=== PATIENT | male | born 1980 | race Caucasian/White ===

== ENCOUNTER 2018-02-09 17:44 | Emergency (ER) | payer OTHER ==
[~2018-02-09] VITALS: Ht 182.9 cm; Wt 98.0 kg
[2018-02-09] MEDS ORDERED: BACDS PO (20:27)
[2018-02-09] MEDS ORDERED: MUPI22OI30 TOP (20:27)
[2018-02-09 20:36] VITALS: BP 127/81
== END 2018-02-09 20:40 | disposition home or self-care (01) ==
LOC: ER 17:44
DX: L03.211 Cellulitis of face (principal)
CPT/HCPCS: 99283

== ENCOUNTER 2020-03-15 10:42 | Emergency (ER) | payer SELFPAY ==
[~2020-03-15] VITALS: Ht 182.9 cm; Wt 90.9 kg
--- NOTE | 2020-03-15 11:00 | NUR ---
PT IS DIAPHORTIC IN PAIN 10/10,PT HAS MOD BLEEDING AT THE DRESSING SITE,PT PLACED COMFORTABLY IN BED WITH PILLOW SUPPORT.
[2020-03-15] MEDS ORDERED: morphine 4 MG/ML inj SYRINge IV ONE (11:05)
[2020-03-15] MEDS ORDERED: cefazolin/dext.iso 2gm/100ml 100 ML IV ONE (11:05)
[2020-03-15] MEDS ORDERED: ondansetron/PF 4mg/2ml inj IV ONE (11:05)
[2020-03-15] MEDS ORDERED: cefazolin/dext.iso 2gm/50ml 100 ML IV ONE (11:08)
[2020-03-15 11:16] LABS: BASOPHILS # (AUTO) 0.1 X10'3 (0-0.2); EOSINOPHILS # (AUTO) 0.3 X10'3 (0-0.9); EOSINOPHILS % (AUTO) 3.9 % (0-6); HEMATOCRIT 41.1 % (42.0-52.0); HEMOGLOBIN 13.5 g/dl (14.0-17.9); LYMPHOCYTES # (AUTO) 3.7 X10'3 (1.1-4.8); LYMPHOCYTES % (AUTO) 42.4 % (21-51); MEAN CORPUSCULAR HEMOGLOBIN 28.2 PG (27.0-31.0); MEAN CORPUSCULAR HGB CONC 32.9 g/dL (33.0-36.5); MEAN CORPUSCULAR VOLUME 85.8 FL (78-98); MONOCYTES # (AUTO) 0.8 X10'3 (0-0.9); MONOCYTES % (AUTO) 9.4 % (2-12); NEUTROPHILS # (AUTO) 3.8 X10'3 (1.8-7.7); NEUTROPHILS % (AUTO) 43.3 % (42-75); PLATELET COUNT 249 X10'3 (140-440); RED BLOOD COUNT 4.79 X10'6 (4.70-6.10); RED CELL DISTRIBUTION WIDTH 14.2 % (11.5-14.5); WHITE BLOOD COUNT 8.7 X10'3 (4.5-11.0)
[2020-03-15] MEDS ORDERED: HYDROmorphone 1 mg/ml syringe IV ONE (11:30)
[2020-03-15] MEDS ORDERED: normal saline 1000ML IV soln IVB ONE (11:30)
[2020-03-15 11:32] LABS: ALANINE AMINOTRANSFERASE 53 U/L (12-78); ALBUMIN 3.6 G/DL (3.4-5.0); ALBUMIN/GLOBULIN RATIO 1.1 (1.1-1.5); ALKALINE PHOSPHATASE 76 IU/L (46-116); ANION GAP 13 (8-16); ASPARTATE AMINO TRANSFERASE 24 U/L (10-37); BILIRUBIN,TOTAL 0.4 MG/DL (0.1-1.0); BLOOD UREA NITROGEN 9 MG/DL (7-18); CALCIUM 8.2 MG/DL (8.5-10.1); CHLORIDE 107 MMOL/L (99-107); CREATININE 1.28 MG/DL (0.60-1.10); GLUCOSE 146 MG/DL (70-104); POTASSIUM 3.6 MMOL/L (3.5-5.1); SODIUM 144 MMOL/L (135-145); TOTAL CARBON DIOXIDE 23.7 MMOL/L (24-32); TOTAL PROTEIN 6.9 G/DL (6.4-8.2); eGFR 63 ML/MIN
--- NOTE | 2020-03-15 11:39 | NUR ---
PER MANAN SAHA GIVE 1 MG DILAUDID NOW AND GIVE 1 MG LATER PT RECEVIED 4 MG MORPHINE WILL FOLLOW THE ORDERS.
--- NOTE | 2020-03-15 11:44 | NUR ---
PT GIVEN 1 MG OF DILAUDID PER MANAN SAHA ORDERS PT RECEVIED MORPHINE 4 MG.PT IS NOT DIAPHORTIC ,MORE COMFORTABLE FELT ASLEEP,RR UNLABORED ,NO DISTRESS NOTED ,PT VITALS STABLE WILL CONTY TO MONITOR.HR 80,BP 136/91,SPO2 94 ON RA.
--- NOTE | 2020-03-15 13:11 | NUR ---
GIVING 1MG OF DILAUDID RGT NOW PER PT REQUEST AND PROVIDER ORDERS.{YIFAN AT BEDSIDE}
[2020-03-15 15:06] VITALS: BP 138/94
== END 2020-03-15 14:00 | disposition short-term general hospital (02) ==
LOC: ER 10:43
DX: S61.412A Laceration without foreign body of left hand, initial encounter (principal); M79.642 Pain in left hand; R11.0 Nausea; R51 Headache; R06.02 Shortness of breath; R42 Dizziness and giddiness; Z72.89 Other problems related to lifestyle; W26.8XXA Contact with other sharp object(s), not elsewhere classified, initial encounter; Y93.89 Activity, other specified; Y92.89 Other specified places as the place of occurrence of the external cause; Y99.8 Other external cause status
CPT/HCPCS: 36415; 73130; 80053; 85025; 85610; 96365; 96375; 99285; J1170; J2270; J2405; J7030

== ENCOUNTER 2023-08-13 09:08 | Emergency (ER) | payer MEDICAID ==
[~2023-08-13] VITALS: Ht 182.9 cm; Wt 104.4 kg
[~2023-08-13 09:08] MED LIST: AMOX1TAB15 PO
[2023-08-13 09:09] VITALS: BP 148/93; PULSE 99; RESP 16; TEMP 98.4; O2SAT 98
[2023-08-13] MEDS ORDERED: CEPH-585 PO (09:16)
[2023-08-13] MEDS ORDERED: SULF1TAB49 PO (09:16)
== END 2023-08-13 09:21 | disposition home or self-care (01) ==
LOC: ER 09:09
DX: L03.211 Cellulitis of face (principal)
CPT/HCPCS: 99283

== ENCOUNTER 2024-03-26 17:55 | Emergency (ER) | payer MEDICAID ==
[~2024-03-26] VITALS: Ht 182.9 cm; Wt 100.0 kg
[~2024-03-26 17:55] MED LIST changes: +CEPH-585 PO
[2024-03-26 18:06] VITALS: BP 133/107; PULSE 130; RESP 18; TEMP 98.1; O2SAT 96
== END 2024-03-26 19:53 ==
LOC: ER 17:56
DX: S50.12XA Contusion of left forearm, initial encounter (principal); S40.212A Abrasion of left shoulder, initial encounter; Z79.2 Long term (current) use of antibiotics; X58.XXXA Exposure to other specified factors, initial encounter; Y93.89 Activity, other specified; Y92.89 Other specified places as the place of occurrence of the external cause; Y99.8 Other external cause status
CPT/HCPCS: 73030; 73090; 99284